=== PATIENT | male | born 1970 | race African-American/Black ===

== ENCOUNTER 2017-10-17 15:18 | Emergency (ER) | payer OTHER, SELFPAY ==
[~2017-10-17 15:18] MED LIST: Iopamidol 370 76% 100 ML VIAL ONE
[2017-10-17 15:58] LABS: PTT 24.7 SEC (22.9-36.1); Prothrombin Time 13.7 SEC (12.0-14.7)
[2017-10-17 15:59] LABS: Bacteria/HPF 2+ HPF (None Seen); Bilirubin Small (Negative); Blood, Urine Trace (Negative); Clarity Turbid (Clear); Glucose, Urine (Dipstick) Negative (Negative); Leukocyte Small (Negative); Nitrite Negative (Negative); Protein, Urine (Dipstick) 30 mg/dL (Neg-Trace); RBC/HPF 0-3 HPF (0-3); Specific Gravity, Urine 1.025 (1.002-1.036); Urobilinogen 0.2 mg/dL (0.2-1.0); WBC/HPF 21-50 HPF (0-3)
[2017-10-17 16:02] LABS: ALT (SGPT) 15 U/L (8-55); AST (SGOT) 37 U/L (5-34); Albumin 4.3 g/dL (3.5-5.0); Alkaline Phosphatase 81 U/L (40-150); Anion Gap 17 mmol/L (10-20); BUN (Urea Nitrogen) 6 mg/dL (8.9-20.6); Bilirubin, Total 0.9 mg/dL (0.2-1.2); Calc. Creatinine Clearance 0 mL/min (70-130); Calcium 9.6 mg/dL (7.8-10.44); Carbon Dioxide 23 mmol/L (22-29); Chloride 104 mmol/L (98-107); Estimated GFR-MDRD Greater than 90; Globulin 3.5 g/dL (2.4-3.5); Glucose 100 mg/dL (70-105); Potassium 3.6 mmol/L (3.5-5.1); Protein, Total 7.8 g/dL (6.0-8.3); Sodium 140 mmol/L (136-145)
[2017-10-17 16:03] LABS: Band 4 % (5-11); CKMB 4.5 ng/mL (0-6.6); Hemoglobin 15.8 g/dL (14.0-18.0); Lymphocytes 29 % (21-51); MDiff Complete? YES; Mean Corpuscular HGB CONC 33.5 g/dL (32.0-36.0); Mean Corpuscular Hemoglobin 31.7 pg (27.0-31.0); Mean Corpuscular Volume 94.6 fL (78.0-98.0); Mean Platelet Volume 7.3 fL (7.4-10.4); Monocytes 10 % (0-10); Neutrophil 57 % (42-75); PLT Morphology Comment Appears Adequate; Platelet Count 218 thou/uL (130-400); RBC Distribution Width 13.2 % (11.5-14.5); Red Blood Cell (RBC) Count 4.99 mill/uL (4.70-6.10); Troponin I Less than 0.010 ng/mL (< 0.028)
[2017-10-17 16:06] LABS: Amphetamine Not Detected (NotDetected); Barbiturates Screen Not Detected (NotDetected); Benzodiazepine Screen Not Detected (NotDetected); Cocaine Metabolite Screen Not Detected (NotDetected); Medtox Control Line Valid? VALID (VALID); Methadone Not Detected (NotDetected); Methamphetamine Not Detected (NotDetected); Opiate Screen Not Detected (NotDetected); Oxycodone Screen Not Detected (NotDetected); Phencyclidine (PCP) Not Detected (NotDetected); THC/Cannabinoid Screen Not Detected (NotDetected); Tricyclic Screen Not Detected (NotDetected)
--- NOTE | 2017-10-17 16:25 | CT ---
BRAIN CT WITHOUT IV CONTRAST: 10/17/17 HISTORY: 47-year-old male with history of head injury falling trauma. Fairly marked atrophy for age. No focal mass or midline shift. No intra or extra-axial hemorrhage. Mild ethmoid sinus mucosal diseas e. The mastoids are clear. IMPRESSION: No significant acute intracranial process. Moderate atrophy for patient's age. No mass or bleed. POS: [facility]
--- NOTE | 2017-10-17 16:27 | CT ---
CT CERVICAL SPINE NONCONTRAST: 10/17/17 HISTORY: Neck injury. FINDINGS: Vertebral body heights and AP alignment are maintained. There is disc space narrowing and osteophytos is throughout each level, somewhat pronounced for the patient's age. Slight rightward convexed curvat ure of the lower cervical spine on the coronal images. Cervicothoracic junction is intact. No acute f racture or dislocation. IMPRESSION: Prominent degenerative changes. No acute osseous abnormalities are demonstrated. POS: [facility]
[2017-10-17] MEDS ORDERED: Ibuprofen 600 MG TAB ONE (16:33)
--- NOTE | 2017-10-17 16:33 | CT ---
CHEST CT SCAN WITH IV CONTRAST ABDOMEN AND PELVIC CT SCAN WITH IV CONTRAST THORACIC SPINE CT SCAN WITH CONTRAST LIMITED LUMBAR SPINE CT SCAN WITH CONTRAST LIMITED: 10/17/17 HISTORY: 47-year-old male with history of injury secondary to trauma. Chest, abdomen and pelvic CT scan demonstrates no pneumothorax or pleural effusion. There is no media stinal hematoma. The aorta appears unremarkable. In the abdomen, there is some bilateral renal cysts. The liver, pancreas, and somewhat small spleen a re intact. No free intraperitoneal fluid or evidence for retroperitoneal hematoma. IMPRESSION: No CT evidence for significant acute posttraumatic process in the chest, abdomen or pelvis. THORACIC SPINE CT SCAN WITH IV CONTRAST LIMITED: IMPRESSION: Thoracic spine spondylosis without fracture or dislocation. LUMBAR SPINE CT SCAN WITH IV CONTRAST LIMITED: IMPRESSION: Lumbar spondylosis with some disc osteophytes particularly at L4-L5 without evidence for acute fractu re or dislocation. POS: [facility]
== END 2017-10-17 16:47 | disposition home or self-care (01) ==
LOC: MADERS 15:18
DX: S00.83XA Contusion of other part of head, initial encounter (principal); S20.212A Contusion of left front wall of thorax, initial encounter; S30.0XXA Contusion of lower back and pelvis, initial encounter; I10 Essential (primary) hypertension; W14.XXXA Fall from tree, initial encounter
CPT/HCPCS: 70450; 71260; 72125; 74177; 80053; 80306; 80307; 81003; 81015; 82553; 83690; 84484; 85025; 85610; 85730; 93005; 94760

== ENCOUNTER 2020-06-23 09:11 | Emergency (ER) | payer SELFPAY ==
[2020-06-23] MEDS ORDERED: Pantoprazole 40 MG VIAL ONE (10:03)
[2020-06-23] MEDS ORDERED: Sodium Chloride 0.9% 1,000 ML ONE (10:03)
[2020-06-23] MEDS ORDERED: Ondansetron PF 4 MG/2 ML Vial ONE (10:03)
[2020-06-23 10:34] LABS: Hemoglobin 15.6 g/dL (14.0-18.0); Lymphocytes 27 % (21-51); MDiff Complete? YES; Mean Corpuscular HGB CONC 31.6 g/dL (32.0-36.0); Mean Corpuscular Volume 101.3 fL (78.0-98.0); Mean Platelet Volume 7.8 fL (7.4-10.4); Monocytes 3 % (0-10); Neutrophil 70 % (42-75); Platelet Count 207 thou/uL (130-400); Platelet Morphology Comment Appears Adequate; RBC Distribution Width 12.3 % (11.5-14.5); RBC Morphology Normal; Red Blood Cell (RBC) Count 4.86 mill/uL (4.70-6.10); White Blood Cell (WBC) Count 8.3 thou/uL (4.8-10.8)
[2020-06-23 10:44] LABS: ALT (SGPT) 37 U/L (8-55); AST (SGOT) 59 U/L (5-34); Albumin 4.6 g/dL (3.5-5.0); Alkaline Phosphatase 89 U/L (40-110); Anion Gap 22 mmol/L (10-20); BUN (Urea Nitrogen) 6 mg/dL (8.4-25.7); Bilirubin, Total 0.6 mg/dL (0.2-1.2); Calc. Creatinine Clearance 0 mL/min (70-130); Calcium 9.6 mg/dL (7.8-10.44); Carbon Dioxide 22 mmol/L (22-29); Chloride 100 mmol/L (98-107); Globulin 3.6 g/dL (2.4-3.5); Glucose 84 mg/dL (70-105); Lipase 80 U/L (8-78); Potassium 3.7 mmol/L (3.5-5.1); Protein, Total 8.2 g/dL (6.0-8.3); Sodium 140 mmol/L (136-145)
[2020-06-23 10:47] LABS: CK (CPK) 523 U/L (30-200); CRP (Inflammatory) Less than 0.50 mg/dL (= or < 0.5)
== END 2020-06-23 11:20 | disposition home or self-care (01) ==
LOC: MADERS 09:11
DX: K25.9 Gastric ulcer, unspecified as acute or chronic, without hemorrhage or perforation (principal); I10 Essential (primary) hypertension
CPT/HCPCS: 74022; 80053; 82150; 82550; 83690; 84484; 85025; 86140; 94760; C9113; J2405; J7050

== ENCOUNTER 2022-10-06 16:50 | Emergency (ER) | payer SELFPAY ==
[2022-10-06] MEDS ORDERED: Lidocaine 1% w/Epinephrine 1:100K 20 ML VIAL ONE (17:54)
[2022-10-06] MEDS ORDERED: Ciprofloxacin 0.3% Ophth Soln 2.5 ml Bottle ONE (17:54)
[2022-10-06] MEDS ORDERED: HYDROcodone/Acetaminophen 5/325 mg Tablet ONE (18:52)
[2022-10-06] MEDS ORDERED: Boostrix 0.5 ML (Tdap) VIAL (>/=7 yrs of age) ONE (18:52)
== END 2022-10-06 18:57 ==
LOC: MADERS 16:50
DX: H00.034 Abscess of left upper eyelid (principal); H60.92 Unspecified otitis externa, left ear; I10 Essential (primary) hypertension; Z79.899 Other long term (current) drug therapy
CPT/HCPCS: 10060; 87070; 87205; 90471; 90715